=== PATIENT | female | born 1960 | race Caucasian/White ===

== ENCOUNTER 2017-05-04 10:03 | Outpatient (CLI) | payer OTHER | END 2017-05-04 20:45 | disposition home or self-care (01) | LOC: SMA 10:03 | PROVIDERS: ATTEND Family Medicine | DX: Z12.31 Encounter for screening mammogram for malignant neoplasm of breast (principal) | CPT/HCPCS: G0202 ==

== ENCOUNTER 2018-07-27 10:07 | Outpatient (CLI) | payer OTHER | END 2018-07-27 19:08 | disposition home or self-care (01) | LOC: SMA 10:07 | PROVIDERS: ATTEND Family Medicine | DX: Z12.31 Encounter for screening mammogram for malignant neoplasm of breast (principal) | CPT/HCPCS: 77067 ==

== ENCOUNTER 2019-12-31 10:16 | Outpatient (CLI) | payer OTHER | END 2019-12-31 20:51 | disposition home or self-care (01) | LOC: SMA 10:16 | PROVIDERS: ATTEND Family Medicine | DX: Z12.31 Encounter for screening mammogram for malignant neoplasm of breast (principal) | CPT/HCPCS: 77067 ==

== ENCOUNTER 2021-01-09 09:20 | Outpatient (CLI) | payer OTHER | END 2021-01-09 20:36 | disposition home or self-care (01) | LOC: SMA 09:20 | PROVIDERS: ATTEND Family Medicine | DX: Z12.31 Encounter for screening mammogram for malignant neoplasm of breast (principal) | CPT/HCPCS: 77067 ==